=== PATIENT | female | born 1950 | race Caucasian/White ===

== ENCOUNTER → 2016-07-08 | Outpatient (CLI) | payer MEDICARE ==
[~2016-07-08] MED LIST: ALPR0.25 PO; BENA1TAB9 PO
== END | disposition home or self-care (01) ==
LOC: ROC 15:28
PROVIDERS: ATTEND Radiology Radiation Oncology
DX: C50.319 Malignant neoplasm of lower-inner quadrant of unspecified female breast (principal)
CPT/HCPCS: G0463